=== PATIENT | male | born 1965 | race Caucasian/White ===

== ENCOUNTER 2020-03-11 23:44 | Inpatient (IN) | payer OTHER ==
[~2020-03-11] VITALS: Ht 182.9 cm; Wt 162.6 kg
--- NOTE | ~2020-03-11 | CON ---
[address] [address] CONSULTATION Name: LUIS ALBA Room: [address] MOtilioROtilio#: [id number] Admission: 03/12/20 Attend Phys: Kitty Fan MD Discharge: Date of : 63 Report #: [id number] THIS REPORT FOR: //name// cc: MICHAEL - Jayleen family physician/PCP MICHAEL - No family physician/PCP ~ DATE OF SERVICE: 03/14/2020 REQUESTING PHYSICIAN: Consult has been requested by Dr. Alas. INDICATION FOR CONSULTATION: Severe obstructive sleep apnea. HISTORY OF PRESENT ILLNESS: A 54-year-old gentleman. He is an active smoker. He has recently been diagnosed with obstructive sleep apnea; however, has not been set up with a CPAP or BiPAP at home as yet. The patient also appears to have a fairly significant COPD, although I do not see this diagnosis on his records previously. He also has recently been treated for an MRSA infection in his right lower leg with doxycycline. At this time, the patient was initially admitted on 03/12, he presented with swelling of lower extremities as well as pain in lower extremities and increasing shortness of breath. The patient also has had significant disturbed sleep at night as well as sleepiness during the day, which remain at baseline. He had a cough, not much sputum. Does not have upper respiratory complaints. Did not report fever or chills. Since his arrival, he has been treated with vancomycin. He also has been on a BiPAP at night. He reports some improvement in shortness of breath since he was admitted. He still has significant pain and swelling of lower extremities, although improved. REVIEW OF SYSTEMS. The patient answered to the negative for 12 questions for review of systems except as mentioned above. PAST MEDICAL HISTORY: Obstructive sleep apnea, recently diagnosed, he says he has a prescription for BiPAP at home; however, did not get it setup as he lost his insurance. Vasectomy . SOCIAL HISTORY: Extensive history of smoking, has now cut down to 3 cigarettes a day, has smoked a lot more in the past, has been smoking for more than 40 years. No known history of heavy alcohol use or illegal drug use. CURRENT MEDICATIONS: List in [employer] reviewed. HOME MEDICATIONS: See discussion above. ALLERGIES: No [place] [address] CONSULTATION Name: LUIS ALBA Room: [address]#: [id number] Admission: 03/12/20 Attend Phys: Kitty Fan MD Discharge: Date of : 63 Report #: [id number] FAMILY HISTORY: No pertinent family history. PHYSICAL EXAMINATION: GENERAL: He is alert, awake and oriented, does not appear to be in any distress. VITAL SIGNS: Has a pulse of 92 and a blood pressure of 119/79. He has been saturating anywhere from 85% to 92% on room air. He has a pulse of 92 and his respiratory rate is around 18-20. He is afebrile with a temperature of 36.6. HEENT: Head is normocephalic and atraumatic. Pupils are equal and reactive. There is no throat erythema, narrow airway, around Mallampati 4. NECK: Does not show raised JVP, asymmetry, mass or lymph nodes. CHEST: Symmetrical expansion on inspection and palpation. On auscultation, breath sounds are bilaterally equal, but decreased. I do not hear any added sounds. Breath sounds are bilaterally equal. HEART: Regular. There is no murmur. ABDOMEN: Soft and nontender. EXTREMITIES: Lower extremities do show 2+ edema. There is some calf tenderness. He had crepe bandages in place, which I did not remove for exam. . SKIN: Visible skin is dry and intact. NEUROLOGICAL: Moves all extremities bilaterally equally and spontaneously with no focal deficit identified. LABORATORY DATA: The patient's chest x-ray from 3 days ago is reviewed and shows mild increase in reticular markings, likely secondary to mild increase in pulmonary vascular congestion. There are no additional findings. Venous Dopplers were negative. His lab work from the is in [employer] and is reviewed. Arterial blood gas, which does show significant hypercarbia with a pCO2 of 80 and a pH of 7.26 from yesterday in [facility] reviewed. ASSESSMENT AND PLAN: 1. Acute on chronic hypercarbic respiratory failure. Recommend continuing with BiPAP as currently prescribed. The patient needs a BiPAP or Trilogy long-term. He says he was working on getting this arranged for him on installment. I will work with the showcase maker tomorrow morning and see if there is a possibility of arranging the BiPAP or Trilogy for him upon discharge. The patient likely also needs oxygen at least while asleep. Unfortunately, we may be limited due to financial reasons. I will repeat an arterial blood gas tomorrow morning. 2. Chronic obstructive pulmonary disease exacerbation. I will go ahead and give him Solu-Medrol overnight while understanding that this will elevate his glucoses. We will also start him on nebulized bronchodilators. He is on vancomycin. There is no large infiltrate noted on the chest x-ray; therefore, I repeated a chest x-ray, but pending. The chest x-ray did not broaden his antibiotics. [address] [place] [address] CONSULTATION Name: LUIS ALBA Room: [address] M.R.#: [id number] Admission: 03/12/20 Attend Phys: Kitty Fan MD Discharge: Date of : 63 Report #: [id number] 3. Obstructive sleep apnea. See discussion above. Weight loss is also recommended. 4. Fluid overload/edema/evaluation for thromboembolic phenomena. I ordered a D-dimer. Again, previous D-dimer was normal at 0.43. We will follow trend. Overall, suspicion of thromboembolism is low. I would like to do an echo. In case his BUN and creatinine are normal, then I will be inclined to give him some Lasix this evening. 5. Cellulitis, lower extremities. He is currently on vancomycin. 6. Diabetes, new diagnosis, this is noted. I understand that with Solu-Medrol there will be a rise in his blood glucoses. Thanks for this consultation. By: [id number] Ramos MD /nt
[2020-03-11 23:53] VITALS: BP 143/72
[2020-03-11] MEDS ORDERED: VIBRAMYCIN 100100 MG PO (23:55)
[2020-03-11] MEDS ORDERED: LASIX 40 MG TAB40 MG PO (23:55)
[2020-03-12 00:33] LABS: ABSOLUTE BASOPHILS 0.1 thou/uL (0.0-0.2); ABSOLUTE EOSINOPHILS 0.2 thou/uL (0.0-0.7); ABSOLUTE LYMPHOCYTES 1.8 thou/uL (0.8-5.3); ABSOLUTE MONOCYTES 0.8 thou/uL (0.0-1.2); ABSOLUTE NEUTROPHILS 5.3 thou/uL (1.6-8.1); BASOPHILS 0.7 %; EOSINOPHILS 2.2 %; HEMATOCRIT 48.4 % (42.0-52.0); HEMOGLOBIN 15.9 gm/dL (14.0-18.0); LYMPHOCYTES 22.4 %; MCH 30.6 pg (26.0-34.0); MCHC 32.8 g/dL (28.0-37.0); MCV 93.3 fL (80.0-100.0); MONOCYTES 10.2 %; MPV 8.3 fl. (7.2-11.1); NUCLEATED RBCS 0 /100WBC; PLATELET COUNT* 247 thou/uL (150-400); POLYS 64.5 %; RBC 5.19 mil/uL (4.50-6.00); WBC 8.2 thou/uL (4.0-11.0)
[2020-03-12 00:41] LABS: CALCIUM 8.5 mg/dL (8.5-10.1); CREATININE 0.9 mg/dL (0.6-1.3); POTASSIUM 4.4 mmol/L (3.5-5.1)
[2020-03-12 00:42] LABS: PROTIME 10.4 Seconds (9.20-11.50)
[2020-03-12 00:51] LABS: ALBUMIN 2.9 g/dL (3.4-5.0); TOTAL BILIRUBIN 0.3 mg/dL (<0.1-1.0); TOTAL PROTEIN 6.5 g/dL (6.4-8.2)
--- NOTE | 2020-03-12 03:23 | NUR ---
SOPHIA NOTIFIED UPON PT RETURN FROM CT. PT CONNECTED TO MONITOR AND O2
[2020-03-12 03:33] LABS: URINE BILIRUBIN NEGATIVE (Negative); URINE BLOOD NEGATIVE (Negative); URINE CLARITY CLEAR; URINE COLOR YELLOW; URINE GLUCOSE-RANDOM NEGATIVE (Negative); URINE KETONES NEGATIVE (Negative); URINE LEUKOCYTES-REFLEX NEGATIVE (Negative); URINE NITRITE-REFLEX NEGATIVE (Negative); URINE PROTEIN NEGATIVE (Negative); URINE SPECIFIC GRAVITY 1.025 (1.005-1.030); URINE UROBILINOGEN 0.2 E.U./dl (0.2-1.0)
[2020-03-12 04:10] VITALS: BP 122/68
[2020-03-12 04:40] VITALS: BP 133/79
[2020-03-12 07:52] VITALS: BP 137/65
--- NOTE | 2020-03-12 09:07 | NUR ---
ASSUMED CARE OF PT THIS AM AROUND 07- LIQUID FLAVOR COMPOUNDER IN PLACE ORDERED, TRACING ST- UPON ASSESSMENT PT NOTED TO BE RESTING IN BED- PT A&O X4- CONT OF B/B- UP AD-HAYDEE IN ROOM, STEADY GAIT NOTED- LCTA, DIMINISHED LUNG SOUNDS- DYSPNEA NOTED ON EXERTION- VSS, O2 SAT 95% ON 2L VIA NC- ABD FIRM/OBESE/NON-TENDER, BS X 4 QUADS- LAST BM REPORTED 03/11/20- IV NOTED TO LEFT HAND INTACT AND SL- BLE 3+ EDEMA WITH REDNESS/DERMATITIS/DISCOLORTATION, NOTED YELLOW DRAINAGE- PT REPORTED PAIN 12/06 TO BLE- BLE US BEING COMPLETED THIS AM ORDERED-BS MONITORED THIS ORDERED AND NOTED TO BE 276, GOOD PO INTAKE NOTED- CALL LIGHT AND PERSONAL BELONGINGS WITH IN REACH- PT MAKES NEEDS KNOWN- ALL NEEDS MET AT THIS TIME-WCTM
--- NOTE | 2020-03-12 10:46 | EKG ---
[place] [address] ELECTROCARDIOGRAM REPORT Name: ANJALILUIS Castaneda Room: [address]#: [id number] Admission: 03/12/20 Attend Phys: Kitty Fan, Discharge: Date of : 63 Date of Service: 03/11/20 2353 Report #: [id number] THIS REPORT FOR: //name// [facility] ED Test Date: 2020-03-11 Test Time: 23:53:51 Pat Name: LUIS ALBA Department: Room: [facility] Gender: M Data Governance Analyst: PHUC : 1965 Requested By: Dilcia Woodruff Order Number: [id number] MD: Jose Orona Measurements Intervals [place] Rate: 97 P: 61 TN: 188 QRS: 58 QRSD: 106 T: 46 QT: 356 QTc: 452 Interpretive Statements Sinus rhythm Probable left atrial enlargement Low voltage, extremity leads Abnormal R-wave progression, late transition ST elevation, consider anterolateral injury Baseline wander in lead(s) I,II,aVR No previous ECG available for comparison Electronically Signed On 03-12-2020 10:46:21 INSTRUCTIONAL MATERIAL DIRECTOR by Jose Orona [email or web address] <ELECTRONICALLY SIGNED> By: Danni Orona MD, FACC 03/12/20 1046 52 52 Danni Orona MD, FAC /EPI
[2020-03-12 12:00] VITALS: BP 148/75
[2020-03-12 16:00] VITALS: BP 145/76
[2020-03-12 19:50] VITALS: BP 139/69
[2020-03-13 00:10] VITALS: BP 118/66
[2020-03-13 04:00] VITALS: BP 136/76
[2020-03-13 05:49] LABS: BE 5.2 mmol/L (-2 to +3); PO2 106.4 mmHg (75.0-100.0)
[2020-03-13 05:51] LABS: PCO2 80.1 mmHg (35.0-45.0); pH 7.268 (7.340-7.450)
[2020-03-13 07:31] VITALS: BP 119/64
--- NOTE | 2020-03-13 07:49 | NUR ---
ASSUMED CARE OF PT THIS AM AROUND 07- BROTH MIXER IN PLACE ORDERED, TRACING SR- UPON ASSESSMENT PT NOTED TO BE UP RESTING IN BED SIDE RECLINER- PT A&O X4- CONT OF B/B- UP AD-HAYDEE IN ROOM, STEADY GAIT NOTED- DIMINISHED LUNG SOUNDS, WITH NOTED NON-PRODUCTIVE COUGH- DYSPNEA NOTED ON EXERTION- VSS, O2 SAT 96% ON 3L VIA NC- ABD ROUND/OBESE/NON-TENDER, BS X4 QUADS- LAST BM REPORTED 03/12/20- IV NOTED TO RIGHT FA INTACT AND SL- IV ABT GIVEN THIS AM PRESCRIBED- BS MONITORED ORDERED, AM BS NOTED TO BE 79, SCHEDULED METFORMIN HELD- +3 BLE EDEMA WITH NOTED REDNESS AND YELLOW DRAINGE, LEG ELEVATION ENCOURAGE, BARRIOR CREAM APPLIED- 11/05 BLE PAIN REPORTED, SCHEDULED GABAPENTIN GIVEN THIS AM-CALL LIGHT AND PERSONAL BELONGINGS WITH IN REACH- PT MAKES NEEDS KNOWN- ALL NEEDS MET AT THIS TIME-WCTM
[2020-03-13 12:00] VITALS: BP 114/78
[2020-03-13 19:50] VITALS: BP 124/79
[2020-03-14 00:43] VITALS: BP 153/98
[2020-03-14 04:00] VITALS: BP 128/50
--- NOTE | 2020-03-14 06:07 | NUR ---
PT CARE ASSUMED AT 1930. SAT MAINTAINED IN BIPAP AT NIGHT. ALERT AND ORIENTED X4. C/O PAIN, MEDICATION GIVEN PER EMAR. CALL LIGHT WITHIN REACH AND BED IN LOW POSITION. HOURLY ROUNDING DONE FOR PT SAFETY.
--- NOTE | 2020-03-14 08:51 | NUR ---
CM SPOKE TO THE PATIENT TO DISCUSS CM ASSESSMENT. PT A&O, INDEPENDENT WITH ADL'S, AND WORKS OUTSIDE THE HOME. PT INFORMS THAT HE OWNS A WALKER, BUT DOES NOT CURRENTLY USE IT. NO OTHER DME. PT HAS NO HX OF HH OR SNF. PT INFORMS THAT HE IS CURRENTLY UNINSURED. PT AGREES TO ALLOW MED ASSIST TO ASSESS HIM FOR MEDICAID. MED ASSIST IS AWARE AND WILL COMPLETE ASSESSMENT TODAY. PT'S INSURANCE STATUS MAY PRESENT A BARRIER TO D/C PLANNING PHYSICIANS PROGRESS NOTE INDICATES THAT PT MAY NEED BIPAP VS TRILOGY. CM WILL REMAIN AVAILABLE TO ASSIST AND FOLLOW NEEDED.
[2020-03-14 09:02] VITALS: BP 133/64
--- NOTE | 2020-03-14 11:12 | NUR ---
WOUND NURSE: PATIENT SEEN TO ADDRESS VENOUS LEG ULCERS NOTED ON BLE. LEFT LOWER LEG PRESENTS FOLLOWS: MULTIPLE LESIONS CLUSTERED IN AN AREA MEASURING 12.0 X 31.0 X 0.2 CM. PRESENT SHALLOW EROSIONS WITH PINKISH-RED GRANULATION TISSUE PRESENT ALONG WITH YELLOW EXUDATE PARTIALLY DRIED. THE RIGHT LEG WOUNDS PRESENT IN A AREA MEASURING 18 X 24 X 0.2 CM. AND PRESENTS IN A SIMILARY FASHION THE RIGHT. LEGS ARE WARM AND PINK WITH BROWNISH HEMOSIDERIN STAINING. CAPILLARY REFILL IS 3 SECONDS IN TOES. PEDAL PULSES ARE PALPABLE AND DOPPLER WAS BIPHASIC AND TRIPHASIC. GIRTH MEASUREMENTS ARE FOLLOWS: LEFT/RIGHT: FOREFOOT: 30.5/30.5; ANKLE: 34.0/33.5; CALF: 50.0/50.5 CM. BLE CLEANSED WITH SOAP AND WATER, RINSED WITH WATER, THEN PATTED DRY. APPLIED MOISTURIZING LOTION TO INTACT SKIN TOES TO KNEE. APPLIED XEROFORM GAUZE UNDER ABD'S TO EACH LESION, THEN WRAPPED BLE WITH MEDLINE 3 LAYER COMPRESSION WRAP. PATIENT INSTRUCTED ON CARE OF WOUNDS AND RECOMMENDED FOLLOW UP AT [facility] OR SIMILAR FACILITY UPON DISCHARGE FROM ACUTE CARE. PAIJANETH ALSO INSTRUCTED ON MEAUSRES TO PROMOTE HEALING WITH EMPHASIS ON ELEVATIONS, WOUND CARE, AND DIET. EXPLAINED THIS IS A CHRONIC AND LONG-TERM PROBLEM THAT WILL NEED TO BE MANAGED LONG-TERM. PATIENT STATED HE UNDERSTOOD.
[2020-03-14 12:00] VITALS: BP 119/79
[2020-03-14] MEDS ORDERED: DOXYCYCLINE 10100 MG PO (14:55)
[2020-03-14] MEDS ORDERED: GLUCOPHAGE850 MG PO (14:55)
[2020-03-14] MEDS ORDERED: GABAPENTIN 100100 MG PO (14:55)
[2020-03-14 16:09] LABS: ABSOLUTE BASOPHILS 0.1 thou/uL (0.0-0.2); ABSOLUTE EOSINOPHILS 0.1 thou/uL (0.0-0.7); ABSOLUTE MONOCYTES 0.8 thou/uL (0.0-1.2); ABSOLUTE NEUTROPHILS 5.8 thou/uL (1.6-8.1); BASOPHILS 0.9 %; EOSINOPHILS 1.5 %; LYMPHOCYTES 22.3 %; MCH 30.7 pg (26.0-34.0); MCHC 32.6 g/dL (28.0-37.0); MCV 94.2 fL (80.0-100.0); MONOCYTES 9.4 %; MPV 7.8 fl. (7.2-11.1); NUCLEATED RBCS 0 /100WBC; PLATELET COUNT* 242 thou/uL (150-400); POLYS 65.9 %; RBC 4.89 mil/uL (4.50-6.00); RDW-CV 14.2 % (10.5-14.5); WBC 8.7 thou/uL (4.0-11.0)
[2020-03-14 16:17] LABS: CALCIUM 8.6 mg/dL (8.5-10.1); CREATININE 0.9 mg/dL (0.6-1.3); POTASSIUM 4.2 mmol/L (3.5-5.1)
[2020-03-14 17:10] VITALS: BP 117/58
--- NOTE | 2020-03-14 17:17 | 2DMMODE ---
[place] [address] 2 D/M-MODE ECHOCARDIOGRAM Name: LUIS ALBA Room: [address] Jan#: [id number] Admission: 03/12/20 Attend Phys: Kitty Fan, Discharge: Date of : 63 Date of Service: 03/14/20 1717 Report #: [id number] THIS REPORT FOR: cc: FAM - No family physician/PCP FAM - No family physician/PCP Eugene Heck MD [facility] ~ APPROVED REPORT Study performed: 03/14/2020 16:22:10 EXAM: Comprehensive 2D, Doppler, and color-flow Echocardiogram Patient Location: In-Patient Room #: 220 Status: routine BSA: 2.70 HR: 79 bpm BP: 119/79 mmHg Rhythm: NSR Other Information Study Quality: Adequate Indications Dyspnea 2D Dimensions IVSd: 13.93 (7-11mm) LVOT Diam: 21.16 (18-24mm) LVDd: 45.50 mm PWd: 12.22 (7-11mm) Ascending Ao: 32.94 (22-36mm) LVDs: 26.33 (25-40mm) Aortic Root: 35.06 mm Volumes Left Atrial Volume (Systole) LA ESV Index: 25.20 mL/m2 Aortic Valve AoV Peak Amandeep.: 1.94 m/s AO Peak Gr.: 15.01 mmHg LVOT Max P.22 mmHg AO Mean Gr.: 9.35 mmHg LVOT Mean P.07 mmHg LVOT Max V: 1.95 m/s AO V2 VTI: 38.57 cm LVOT Mean V: 1.21 m/s PARUL (VTI): 3.44 cm2 LVOT V1 VTI: 37.76 [place] [address] 2 D/M-MODE ECHOCARDIOGRAM Name: LUIS ALBA Room: [address]#: [id number] Admission: 03/12/20 Attend Phys: Kitty Fan, Discharge: Date of : 63 Date of Service: 03/14/20 1717 Report #: [id number] Mitral Valve E/A Ratio: 1.16 MV Decel. Time: 269.54 ms MV E Max Amandeep.: 1.06 m/s MV PHT: 78.17 ms MVA (PHT): 2.81 cm2 TDI E/Lateral E': 7.07 E/Medial E': 8.15 Medial E' Amandeep.: 0.13 m/s Lateral E' Amandeep.: 0.15 m/s Pulmonary Valve PV Peak Amandeep.: 1.05 m/s PV Peak Gr.: 4.37 mmHg Left Ventricle The left ventricle is normal size. There is normal LV segmental wall motion. Mild concentric left ventricular hypertrophy. Left ventricular systolic function is normal. The left ventricular ejection fraction is within the normal range. LVEF is 60-65%. Right Ventricle The right ventricle is normal size. The right ventricular systolic function is normal. Atria The left atrium size is normal. The right atrium size is normal. Aortic Valve The aortic valve is normal in structure. No aortic regurgitation is present. Mild aortic stenosis. Mitral Valve The mitral valve is normal in structure. There is trace mitral valve regurgitation noted. No evidence of mitral valve stenosis. Tricuspid Valve The tricuspid valve is normal in structure. Trace tricuspid regurgitation. Pulmonic Valve Pulmonic valve is not well visualized. There is no pulmonic valvular regurgitation[place] [address] 2 D/M-MODE ECHOCARDIOGRAM Name: LUIS ALBA Tonya Room: [address]#: [id number] Admission: 03/12/20 Attend Phys: Kitty Fan, Discharge: Date of : 63 Date of Service: 03/14/20 1717 Report #: [id number] The aortic root is normal in size. IVC is normal in size and collapses >50% with inspiration. Pericardium There is no pericardial effusion. <Conclusion> Mild concentric left ventricular hypertrophy. LVEF is 60-65%. Mild aortic stenosis. <ELECTRONICALLY SIGNED> By: Eugene Heck MD, FACC 03/14/201716 16 16 Eugene Heck MD, FACC /INF
--- NOTE | 2020-03-14 18:54 | NUR ---
PT IS ALERT AND ORIENTED C/O PAIN TO BILATERAL LOWER EXT. MAINLY WITH ACTIVITY PULM WANTED PT TO STAY ANOTHER NIGHT D/T NO TRIOLOGY FOR HOME AND COPD EXAC. PT DOES DESAT AT TIMES PT IS UP AD HAYDEE LIVES AT HOME ALONE SHOULD DC TOMORROW SR ST ON THE MONITOR TOLERATES PAIN MEDS CALL LIGHT IN REACH
[2020-03-14 20:10] VITALS: BP 142/73
[2020-03-15 00:04] VITALS: BP 147/78
[2020-03-15 03:56] VITALS: BP 132/89
--- NOTE | 2020-03-15 04:56 | NUR ---
PT CARE ASSUMED AT 1930. SAT MAINTAINED IN BIPAP AT NIGHT. ALERT AND ORIENTED X4. CALL LIGHT WITHIN REACH AND BED IN LOW POSITION. HOURLY ROUNDING DONE FOR PT SAFETY.
[2020-03-15 05:12] LABS: CALCIUM 8.8 mg/dL (8.5-10.1); CREATININE 0.9 mg/dL (0.6-1.3); POTASSIUM 4.3 mmol/L (3.5-5.1)
[2020-03-15 08:00] VITALS: BP 131/64
[2020-03-15 08:25] LABS: BE 8.9 mmol/L (-2 to +3); pH 7.397 (7.340-7.450)
[2020-03-15 08:40] LABS: PCO2 60.9 mmHg (35.0-45.0); PO2 58.4 mmHg (75.0-100.0)
--- NOTE | 2020-03-15 09:38 | NUR ---
CM SPOKE TO THE PT TO DISCUSS D/C PLANNING AND THE PHYSICIANS RECOMMENDATION TO PROVIDE PT ASSITANCE WITH OBTAINING CPAP THROUGH A DME COMPANY THAT HE HAD FOUND. PT INFORMS 'I DON' NEED HELP WITH THAT. ALL I HAVE TO DO IS SEND THE ORDER TO THE COMPANY WHEN I GET HOME. I WAS IN THE PROCESS OF DOING THAT BEFORE I CAME HERE. I JUST HAVE TO SCAN IT AND PAY FOR IT WHEN I GET HOME'. PT DECLINED CM ASSISTANCE WITH THIS PROCESS STATING 'THE ORDER IS AT HOME, AND I DONT NEED YOUR HELP'. CM INFORMEFD THE RN IN-CHARGE OF THE PT OF THIS INFO, AND WILL DISCUSS THE SAME WITH THE PHSICIAN. CM WILL REMAIN AVAILABLE TO ASSIST AND FOLLLOW NEEDED.
[2020-03-15 11:33] VITALS: BP 131/64
[2020-03-15] MEDS ORDERED: PROAIR HFA8.5 GM INH (11:51)
[2020-03-15] MEDS ORDERED: PREDNISONE 10 M10 MG PO (11:51)
[2020-03-15] MEDS ORDERED: ADVAIR 250-501 EACH INH (11:51)
--- NOTE | 2020-03-15 12:18 | NUR ---
PT DISCHARGED TO HOME NO QUESTIONS OR CONCERNS SUPPOSED TO FOLLOW UP WITH [facility] FOR INSURANCE ISSUES
== END 2020-03-15 12:18 | disposition home or self-care (01) | DRG 602 ==
LOC: M.ERS 23:44 → M.TBA-ER 03-12 03:39 → M.2W 03-12 04:30
PROVIDERS: Emergency Medicine; Internal Medicine; Internal Medicine Critical Care Medicine; ADMIT Internal Medicine; ATTEND Internal Medicine
PROC: 5A09357 Assistance with Respiratory Ventilation, Less than 24 Consecutive Hours, Continuous Positive Airway Pressure (ICD-10-PCS; principal; 2020-03-14)
DX: L03.116 Cellulitis of left lower limb (principal); J96.21 Acute and chronic respiratory failure with hypoxia; J96.22 Acute and chronic respiratory failure with hypercapnia; J44.1 Chronic obstructive pulmonary disease with (acute) exacerbation; Z68.42 Body mass index [BMI] 45.0-49.9, adult; L03.115 Cellulitis of right lower limb; G47.33 Obstructive sleep apnea (adult) (pediatric); F17.210 Nicotine dependence, cigarettes, uncomplicated; E11.42 Type 2 diabetes mellitus with diabetic polyneuropathy; E66.9 Obesity, unspecified; Z20.828 Contact with and (suspected) exposure to other viral communicable diseases; Z98.52 Vasectomy status; Z87.891 Personal history of nicotine dependence; Z91.19 Patient's noncompliance with other medical treatment and regimen; Z79.899 Other long term (current) drug therapy

== ENCOUNTER 2021-04-27 11:56 | Inpatient (IN) | payer OTHER ==
[~2021-04-27] VITALS: Ht 180.3 cm; Wt 158.8 kg
[~2021-04-27 11:56] MED LIST: ADVAIR 250-501 EACH INH; DOXYCYCLINE 10100 MG PO; GABAPENTIN 100100 MG PO; GLUCOPHAGE850 MG PO; LASIX 40 MG TAB40 MG PO; PREDNISONE 10 M10 MG PO; PROAIR HFA8.5 GM INH; VIBRAMYCIN 100100 MG PO
[2021-04-27 12:14] VITALS: BP 170/81
[2021-04-27 13:22] LABS: ABSOLUTE BASOPHILS 0.1 thou/uL (0.0-0.2); ABSOLUTE EOSINOPHILS 0.1 thou/uL (0.0-0.7); ABSOLUTE LYMPHOCYTES 1.3 thou/uL (0.8-5.3); ABSOLUTE MONOCYTES 0.9 thou/uL (0.0-1.2); BASOPHILS 1.2 %; EOSINOPHILS 1.6 %; HEMATOCRIT 50.6 % (42.0-52.0); HEMOGLOBIN 16.4 gm/dL (14.0-18.0); LYMPHOCYTES 14.1 %; MCH 30.3 pg (26.0-34.0); MCHC 32.4 g/dL (28.0-37.0); MCV 93.4 fL (80.0-100.0); MONOCYTES 9.5 %; MPV 9.1 fl. (7.2-11.1); NUCLEATED RBCS 0 /100WBC; PLATELET COUNT* 227 thou/uL (150-400); POLYS 73.6 %; RBC 5.41 mil/uL (4.50-6.00); RDW-CV 13.7 % (10.5-14.5); WBC 9.5 thou/uL (4.0-11.0)
[2021-04-27 14:06] LABS: CALCIUM 9.1 mg/dL (8.5-10.1); CREATININE 1.1 mg/dL (0.6-1.3); POTASSIUM 4.1 mmol/L (3.5-5.1)
[2021-04-27 14:17] LABS: ALBUMIN 3.1 g/dL (3.4-5.0); MAGNESIUM 2.1 mg/dL (1.8-2.4); TOTAL BILIRUBIN 0.4 mg/dL (<0.1-1.0); TOTAL PROTEIN 6.9 g/dL (6.4-8.2)
--- NOTE | 2021-04-27 17:02 | 2DMMODE ---
[place] [address] 2 D/M-MODE ECHOCARDIOGRAM Name: LUIS ALBA Tonya Room: [place] [address] ADM IN [facility]#: [id number] Admission: 04/27/21 Attend Phys: Kitty Fan, Discharge: Date of : 63 Date of Service: 04/27/211701 Report #: [id number] THIS REPORT FOR: cc: FAM - No family physician/PCP FAM - No family physician/PCP Cosme Mcgee MD [facility] ~ APPROVED REPORT Study performed: 04/27/2021 15:30:05 EXAM: Comprehensive 2D, Doppler, and color-flow Echocardiogram Patient Location: In-Patient Room #: ER Status: routine BSA: 2.68 HR: 104 bpm BP: 114/75 mmHg Rhythm: NSR Other Information Study Quality: Good Indications Dyspnea 2D Dimensions IVSd: 14.81 (7-11mm) LVOT Diam: 21.05 (18-24mm) LVDd: 36.98 mm PWd: 11.74 (7-11mm) Ascending Ao: 31.53 (22-36mm) LVDs: 26.10 (25-40mm) Aortic Root: 34.49 mm Volumes Left Atrial Volume (Systole) LA ESV Index: 16.50 mL/m2 Aortic Valve AoV Peak Amandeep.: 2.36 m/s AO Peak Gr.: 22.26 mmHg AO Mean Gr.: 14.36 mmHg AO V2 VTI: 43.89 cm Pulmonary Valve PV Peak Amandeep.: 1.41 m/s PV Peak Gr.: 7.90 [place] [address] 2 D/M-MODE ECHOCARDIOGRAM Name: LUIS ALBA Tonya Room: [address] IN [facility]#: [id number] Admission: 04/27/21 Attend Phys: Kitty aFn, Discharge: Date of : 63 Date of Service: 04/27/21 1702 Report #: [id number] Left Ventricle The left ventricle appears mildly dilated. There is grossly normal LV segmental wall motion. Mild left ventricular outflow tract gradient is present. Mild concentric left ventricular hypertrophy. Left ventricular systolic function is normal. The left ventricular ejection fraction is within the normal range. LVEF is 60-65%. Grade I - abnormal relaxation pattern. Right Ventricle The right ventricle is normal size. The right ventricular systolic function is normal. Atria Left atrium is dilated. The right atrium size is normal. Aortic Valve The aortic valve is grossly normal in structure. No aortic regurgitation is present. There is no aortic valvular stenosis. Mitral Valve The mitral valve is grossly normal in structure. There is no mitral valve regurgitation noted. No evidence of mitral valve stenosis. Tricuspid Valve The tricuspid valve is not well visualized. Trace tricuspid regurgitation. Unable to assess PA pressure. Pulmonic Valve The pulmonary valve is not well visualized. There is no pulmonic valvular regurgitation. Great Vessels The aortic root is normal in size. IVC is not well visualized. Pericardium There is no pericardial effusion. <Conclusion> The study is technically limited due to body habitus. The left ventricle appears mildly dilated. Mild left ventricular outflow tract [place] [address] 2 D/M-MODE ECHOCARDIOGRAM Name: LUIS ALBA Room: [address] IN ..#: [id number] Admission: 04/27/21 Attend Phys: Kitty Fan, Discharge: Date of : 63 Date of Service: 04/27/211701 Report #: [id number] Mild concentric left ventricular hypertrophy. LVEF is 60-65%. Grade I - abnormal relaxation pattern. There is grossly normal LV segmental wall motion. Left atrium is dilated. <ELECTRONICALLY SIGNED> By: Cosme Mcgee MD, FACC 04/27/211701 01 01 Cosme Mcgee MD, FACC /INF
[2021-04-27 18:48] VITALS: BP 127/70
[2021-04-27 19:51] LABS: URINE BILIRUBIN NEGATIVE (Negative); URINE BLOOD 3+ (Negative); URINE CLARITY HAZY; URINE COLOR YELLOW; URINE GLUCOSE-RANDOM NEGATIVE (Negative); URINE KETONES NEGATIVE (Negative); URINE LEUKOCYTES-REFLEX NEGATIVE (Negative); URINE NITRITE-REFLEX NEGATIVE (Negative); URINE PROTEIN NEGATIVE (Negative); URINE UROBILINOGEN 0.2 E.U./dl (0.2-1.0)
[2021-04-27 19:53] LABS: BACTERIA-REFLEX None Seen /HPF (None Seen); CASTS None Seen /LPF (None Seen); CRYSTALS None Seen /LPF (None Seen); SQUAMOUS 0-3 Few /LPF (0-3); URINE WBC-REFLEX None Seen /HPF (0-5)
[2021-04-27 23:00] VITALS: BP 132/79
[2021-04-28] VITALS (7 sets, daily range): BP systolic 95–161; BP diastolic 43–76
[2021-04-28 07:08] LABS: GLYCOHEMOGLOBIN (HGB A1C) 7.3 % (4.8-5.6)
[2021-04-28 08:05] LABS: HEMOGLOBIN 16.2 gm/dL (14.0-18.0); MCH 30.5 pg (26.0-34.0); MCV 92.4 fL (80.0-100.0); MPV 8.6 fl. (7.2-11.1); RBC 5.3 mil/uL (4.50-6.00); WBC 10.9 thou/uL (4.0-11.0)
[2021-04-28 08:21] LABS: ALBUMIN 3.2 g/dL (3.4-5.0); CALCIUM 8.7 mg/dL (8.5-10.1); POTASSIUM 4.1 mmol/L (3.5-5.1); TOTAL BILIRUBIN 0.7 mg/dL (<0.1-1.0); TOTAL PROTEIN 7.2 g/dL (6.4-8.2)
--- NOTE | 2021-04-28 12:20 | EKG ---
[place] [address] ELECTROCARDIOGRAM REPORT Name: ANJALILUIS Tonya Room: [place] [address] ADM IN [facility]#: [id number] Admission: 04/27/21 Attend Phys: Kitty aFn, Discharge: Date of : 63 Date of Service: 04/27/21 1230 Report #: [id number] THIS REPORT FOR: //name// [facility] ED Test Date: 2021-04-27 Test Time: 12:30:24 Pat Name: LUIS ALBA Department: Room: [place] [address] Gender: M Synthetic Filament Extruder: TOBIAS : 1965 Requested By: Kitty Fan Order Number: [id number] Leslie MD: Rafael Pisano Measurements Intervals [place] Rate: 110 P: 63 WI: 176 QRS: 9 QRSD: 109 T: 82 QT: 320 QTc: 433 Interpretive Statements Sinus tachycardia Probable left atrial enlargement Low voltage, extremity leads Abnormal R-wave progression, late transition High ST segment takeoff over the anterior precordium most compatible with early repolarization Baseline wander in lead(s) V2 Compared to ECG 03/11/2020 23:53:51 Sinus rate has increased ST (T wave) deviation still present Electronically Signed On 04-28-2021 12:20:39 COMMISSION CLERK by Rafael Pisano [email or web address] <ELECTRONICALLY SIGNED> By: Rafael Pisano MD, [facility] 04/28/21 1220 1230 1230 Rafael Pisano MD, [facility] /EPI
[2021-04-29 01:38] VITALS: BP 105/51
[2021-04-29 05:10] VITALS: BP 133/98
[2021-04-29 09:12] LABS: HEMATOCRIT 47.2 % (42.0-52.0); HEMOGLOBIN 15.2 gm/dL (14.0-18.0); MCH 30.5 pg (26.0-34.0); MCHC 32.3 g/dL (28.0-37.0); MCV 94.6 fL (80.0-100.0); MPV 8.3 fl. (7.2-11.1); RBC 4.99 mil/uL (4.50-6.00); WBC 9.5 thou/uL (4.0-11.0)
[2021-04-29 09:21] LABS: CALCIUM 8.3 mg/dL (8.5-10.1); CREATININE 1.6 mg/dL (0.6-1.3); MAGNESIUM 2.1 mg/dL (1.8-2.4); POTASSIUM 4.6 mmol/L (3.5-5.1); TOTAL BILIRUBIN 0.5 mg/dL (<0.1-1.0); TOTAL PROTEIN 6.7 g/dL (6.4-8.2)
--- NOTE | 2021-04-29 10:03 | CON ---
[address] [address] CONSULTATION Name: LUIS ALBA Room: [address] [place] .R.#: [id number] Admission: 04/27/21 Attend Phys: Kitty Fan MD Discharge: Date of : 63 Report #: [id number] THIS REPORT FOR: cc: FAM - No family physician/PCP FAM - No family physician/PCP Cosme Mcgee MD [facility] ~ DATE OF CONSULTATION: 04/28/2021 CARDIOLOGY CONSULTATION INDICATION: Abnormal EKG and volume overload. HISTORY OF PRESENT ILLNESS: The patient is a 55-year-old gentleman with morbid obesity. He has history of obstructive sleep apnea, COPD and hypercapnic respiratory failure. There is no prior cardiac history of heart failure. Echocardiogram shows normal LV systolic function with mild left ventricular outflow tract obstruction likely due to underlying LVH. Diastolic function could not be assessed, but clearly the patient has some element of diastolic dysfunction. He presents to the hospital with complaints of lower extremity swelling and weeping from his lower extremities. He has chronic lower extremity edema. He states this leads to pain and numbness and tingling. He has dyspnea on exertion. He has orthopnea. He is not having shortness of breath at rest. He has been hospitalized approximately a year ago with similar complaints. He was recently diagnosed with type 2 diabetes mellitus. He takes no medications at home. CPAP has been prescribed, but not utilized. On presentation, he was on no home medications. Medical noncompliance is an issue. PAST MEDICAL HISTORY: 1. COPD. 2. Obstructive sleep apnea. 3. Hypercapnic respiratory failure. 4. Probable diastolic heart failure. 5. Morbid obesity. 6. Chronic venous stasis. ALLERGIES: None documented. MEDICATIONS: None. FAMILY HISTORY: Noncontributory. SOCIAL HISTORY: The patient smokes cigarettes daily. He does not drink alcohol. He lives with his father. REVIEW OF SYSTEMS: As per HPI, [place] [id number] CONSULTATION Name: LUIS ALBA Room: [address]#: [id number] Admission: 04/27/21 Attend Phys: Kitty Fan MD Discharge: Date of : 63 Report #: [id number] PHYSICAL EXAMINATION: VITAL SIGNS: Blood pressure 143/86, pulse 100. GENERAL: This is a morbidly obese gentleman who is in no distress. HEENT: Head is normocephalic, atraumatic. Extraocular muscles intact. Mucous membranes are moist. NECK: Thick without obvious jugular venous distention. CHEST: Breath sounds diffusely diminished throughout. I do not appreciate wheezes or rales. CARDIAC: Distant S1 and S2 without gallop or murmur. ABDOMEN: Protuberant, soft and nontender. Positive bowel sounds. EXTREMITIES: 4+ edema to the mid thighs bilaterally. Chronic venous skin changes noted. LABORATORY DATA: A 12-lead EKG shows sinus rhythm with ST elevation diffusely consistent with early repolarization and possible LVH. Troponins are unremarkable. NT-proBNP is not significantly elevated. Electrolytes within normal limits. Renal function appears normal on laboratory evaluation. Hemoglobin A1c elevated consistent with type 2 diabetes mellitus. Chest x-ray shows bilateral edema versus under penetration. The patient has responded to IV diuresis. IMPRESSION AND RECOMMENDATIONS: 1. Gross volume overload, multifactorial. Likely due to chronic respiratory failure with obstructive sleep apnea and hypercapnic respiratory failure and right heart strain. The patient does not have evidence of systolic dysfunction on echocardiogram. Likely has some diastolic dysfunction. NT-proBNP is not significantly elevated to suggest acute systolic heart failure. I believe he has chronic diastolic heart failure that has been poorly controlled. Agree with diuresis gently at this time. I have decreased Lasix to daily. We will need to follow renal function closely to avoid dehydration. 2. Hypertension on arrival. I believe the patient's gross volume overload is contributing to some hypertension. Diuresis will help this. I would also like to try low dose beta chrissy as this may increase cardiac filling and improve heart failure. 3. Diastolic heart failure with acute exacerbation[place] [id number] CONSULTATION Name: LUIS ALBA Room: [address] [place] .R.#: [id number] Admission: 04/27/21 Attend Phys: Kitty Fan MD Discharge: Date of : 63 Report #: [id number] outlined above. Systolic function appears normal on echocardiogram. 4. Profound peripheral edema, multifactorial as outlined above. At this point in time, diuresis will help a little. I believe wrapping his lower extremities will help. Doubt he would tolerate SUDHAKAR hose at this point in time. I have asked the patient to elevate his lower extremities, which he has been noncompliant with doing. 5. Chronic obstructive pulmonary disease appears chronic and stable at this time. 6. Obstructive sleep apnea. The patient is having significant end organ effects of obstructive sleep apnea, including lower extremity edema, diastolic heart failure, etc. I believe he would benefit from compliance with his CPAP. May need to discuss with social workers his insurability status regarding Medicaid and appliances at home. <ELECTRONICALLY SIGNED> By: Cosme Mcgee MD, FACC 04/29/21 [id number] Mcgee MD, FACC /nt
[2021-04-29 12:00] VITALS: BP 109/83
[2021-04-29 16:00] VITALS: BP 117/61
[2021-04-29 21:04] VITALS: BP 124/68
[2021-04-30 04:48] VITALS: BP 114/68
[2021-04-30 08:39] LABS: HEMATOCRIT 44.8 % (42.0-52.0); HEMOGLOBIN 15.1 gm/dL (14.0-18.0); MCH 31.7 pg (26.0-34.0); MCHC 33.6 g/dL (28.0-37.0); MCV 94.2 fL (80.0-100.0); MPV 8.7 fl. (7.2-11.1); RBC 4.75 mil/uL (4.50-6.00); RDW-CV 13.8 % (10.5-14.5); WBC 9.6 thou/uL (4.0-11.0)
[2021-04-30 08:43] VITALS: BP 122/64
[2021-04-30 08:56] LABS: CALCIUM 8.7 mg/dL (8.5-10.1); CREATININE 1.4 mg/dL (0.6-1.3); POTASSIUM 4.2 mmol/L (3.5-5.1)
[2021-04-30 12:04] VITALS: BP 114/58
[2021-04-30 12:35] LABS: INFLUENZA A ANTIGEN Negative (Negative); INFLUENZA B ANTIGEN Negative (Negative)
[2021-04-30 15:47] VITALS: BP 143/76
[2021-04-30 20:49] VITALS: BP 124/69
[2021-05-01 01:21] VITALS: BP 118/72
[2021-05-01 04:42] VITALS: BP 107/43
[2021-05-01 05:47] LABS: HEMATOCRIT 46.4 % (42.0-52.0); HEMOGLOBIN 14.7 gm/dL (14.0-18.0); MCH 30.2 pg (26.0-34.0); MCHC 31.8 g/dL (28.0-37.0); MCV 95.2 fL (80.0-100.0); MPV 8.2 fl. (7.2-11.1); RBC 4.87 mil/uL (4.50-6.00); WBC 8.2 thou/uL (4.0-11.0)
[2021-05-01 06:21] LABS: ALBUMIN 2.9 g/dL (3.4-5.0); CALCIUM 8.5 mg/dL (8.5-10.1); CREATININE 1.3 mg/dL (0.6-1.3); MAGNESIUM 2.1 mg/dL (1.8-2.4); POTASSIUM 4.2 mmol/L (3.5-5.1); TOTAL BILIRUBIN 0.4 mg/dL (<0.1-1.0); TOTAL PROTEIN 6.7 g/dL (6.4-8.2)
[2021-05-01 08:30] VITALS: BP 152/87
[2021-05-01] MEDS ORDERED: METFORMIN HCL500 MG PO (10:39)
[2021-05-01] MEDS ORDERED: LASIX 40 MG TAB40 MG PO (10:39)
[2021-05-01] MEDS ORDERED: GLUCOTROL XL2.5 MG PO (10:39)
[2021-05-01] MEDS ORDERED: LISINOPRIL10 MG PO (10:39)
[2021-05-01] MEDS ORDERED: CEFDINIR300 MG PO (10:39)
[2021-05-01] MEDS ORDERED: DOXYCYCLINE 10100 MG PO (10:39)
[2021-05-01 12:20] VITALS: BP 123/60
[2021-05-01 16:22] VITALS: BP 123/60
[2021-05-01 20:00] VITALS: BP 138/74
[2021-05-02] VITALS: BP 138/69
[2021-05-02 04:00] VITALS: BP 131/63
[2021-05-02 07:45] VITALS: BP 128/71
[2021-05-02 12:00] VITALS: BP 119/49
== END 2021-05-02 13:35 | disposition home or self-care (01) | DRG 177 ==
LOC: M.ERS 11:56 → M.TBA-ER 14:48 → M.2W 04-28 18:29
PROVIDERS: Internal Medicine Cardiovascular Disease; Physician Assistant; ADMIT Internal Medicine; ATTEND Internal Medicine
PROC: 5A09357 Assistance with Respiratory Ventilation, Less than 24 Consecutive Hours, Continuous Positive Airway Pressure (ICD-10-PCS; principal; 2021-04-28)
PROC: 5A0935A Assistance with Respiratory Ventilation, Less than 24 Consecutive Hours, High Flow/Velocity Cannula (ICD-10-PCS; 2021-04-29)
PROC: 5A0935A Assistance with Respiratory Ventilation, Less than 24 Consecutive Hours, High Flow/Velocity Cannula (ICD-10-PCS; 2021-04-30)
DX: J15.6 Pneumonia due to other Gram-negative bacteria (principal); J96.01 Acute respiratory failure with hypoxia; I50.33 Acute on chronic diastolic (congestive) heart failure; N17.9 Acute kidney failure, unspecified; Z68.42 Body mass index [BMI] 45.0-49.9, adult; J44.0 Chronic obstructive pulmonary disease with (acute) lower respiratory infection; G47.33 Obstructive sleep apnea (adult) (pediatric); E66.01 Morbid (severe) obesity due to excess calories; F17.210 Nicotine dependence, cigarettes, uncomplicated; E11.65 Type 2 diabetes mellitus with hyperglycemia; I87.8 Other specified disorders of veins; I11.0 Hypertensive heart disease with heart failure; R31.9 Hematuria, unspecified; Z20.822 Contact with and (suspected) exposure to COVID-19; Z98.52 Vasectomy status; Z91.19 Patient's noncompliance with other medical treatment and regimen